=== PATIENT | female | born 1985 | race Two or more races ===

== ENCOUNTER 2016-09-30 18:55 | Emergency (ER) | payer MEDICAID ==
[2016-09-30 20:14] LABS: ABSOLUTE NEUTROPHIL COUNT 8.1 K/mm3 (1.8-7.7); BASO % 0.3 % (0.2-1.0); EOS # 0.2 (0.0-0.5); EOS % 1.3 % (0.9-2.9); HEMOGLOBIN 12.8 gm/l (12.0-16.0); IMM NEUT # 0.1 K/mm3 (0-0.2); IMM NEUT% 0.5 % (0-1); LYMPH % 24.8 % (15-45); MEAN CELL VOLUME 90.3 fl (81.0-99.0); MEAN CORPUSCULAR HEMOGLOBIN 29.6 pg (27.0-31.0); MEAN CORPUSCULAR HGB CONC 32.8 g/dl (33.0-37.0); MEAN PLATELET VOLUME 13.2 fl (7.4-10.4); MONO # 0.6 (0.0-0.8); MONO % 5.1 % (4-12); PLATELET COUNT 128 K/mm3 (130-400); RED CELL DISTRIBUTION WIDTH 12.4 % (11.5-14.5)
[2016-09-30 20:50] LABS: SPECIFIC GRAVITY 1.015 (1.001-1.030); URINE BILIRUBIN NEGATIVE (NEGATIVE); URINE BLOOD NEGATIVE (NEGATIVE); URINE GLUCOSE (UA) NEGATIVE (NEGATIVE); URINE LEUKOCYTE ESTERASE NEGATIVE (NEGATIVE); URINE NITRITE NEGATIVE (NEGATIVE); URINE PROTEIN NEGATIVE (NEGATIVE); URINE UROBILINOGEN NORMAL (0-1 mg/dl)
[2016-09-30 20:52] LABS: URINE APPEARANCE CLEAR; URINE COLOR YELLOW
--- NOTE | 2016-10-06 14:21 | US ---
OB COMP <14 WKS HISTORY: Left lower quadrant pain with bleeding. The patient is , expected to be at 6 weeks 6 days gestational age. COMPARISONS: None. FINDINGS: Transabdominal and transvaginal ultrasonography was performed demonstrating an intrauterine fluid collection. There is a visible yolk sac and pole. The crown to rump length measures 1.2 cm, equivalent to a gestational age of 7 weeks 2 days. The calculated sonographic EDC is 05/17/2017. cardiac activity is identified with a heart rate of 138 bpm. There is a focus of perigestational hemorrhage identified measuring 11 x 4 x 4 mm in size. The maternal right ovary measures 1.3 x 3.3 x 3.1 cm. The left ovary measures 3.4 x 1.8 x 3.4 cm. A hypoechoic area within the left ovary measuring 1.8 cm may reflect a collocated or hemorrhagic corpus luteal cyst. IMPRESSION: 1. A single live intrauterine gestation with mean ultrasound gestational age 7 weeks 2 days. The calculated sonographic EDC is 05/17/2017. A heart rate of 138 bpm is observed. 2. A focus of perigestational hemorrhage currently measuring 11 x 4 x 4 mm in size. 3. A nonvascular low echogenicity focus measuring 1.8 cm within the maternal left ovary which may reflect a complicated or hemorrhagic corpus luteal cyst. The findings were called to the emergency room at 2056 hours,09/30/2016, by [facility].
== END 2016-09-30 21:14 | disposition home or self-care (01) ==
LOC: ED 18:55
DX: O20.0 Threatened abortion (principal); Z3A.08 8 weeks gestation of pregnancy